=== PATIENT | female | born 1985 | race Caucasian/White ===

== ENCOUNTER 2018-04-15 18:30 | Emergency (ER) | payer OTHER ==
[~2018-04-15] VITALS: Ht 170.2 cm; Wt 95.3 kg
[~2018-04-15 18:30] MED LIST: CITRANATAL HARM1 SG1 PO; CLEOCIN HCL300 MG PO; CORTISPORIN 1%-10 M1 AD; MOTRIN 800MG T800 MG PO; NITROFURANTOIN100 M3 PO; PRENATAL1 TA1 PO
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
[2018-04-15 20:55] VITALS: BP 130/75
== END 2018-04-15 21:46 ==
LOC: ERH 18:30
DX: S16.1XXA Strain of muscle, fascia and tendon at neck level, initial encounter (principal); S46.912A Strain of unspecified muscle, fascia and tendon at shoulder and upper arm level, left arm, initial encounter; R07.9 Chest pain, unspecified; V49.40XA Driver injured in collision with unspecified motor vehicles in traffic accident, initial encounter; Y93.9 Activity, unspecified; D64.9 Anemia, unspecified
CPT/HCPCS: 71046; 72050; 73030-LT; 81025; 93005; 93010